=== PATIENT | female | born 1980 | race Caucasian/White ===

== ENCOUNTER 2019-04-03 16:00 | Inpatient (IN) | payer OTHER ==
[~2019-04-03] VITALS: Ht 157.5 cm; Wt 68.2 kg
[~2019-04-03 16:00] MED LIST: CALC-143 PO; PREN1TAB13 PO
[2019-04-03 16:55] VITALS: Ht 157.5 cm; Wt 68.2 kg
[2019-04-06 08:00] VITALS: BP 112/68; PULSE 68; RESP 16
== END 2019-04-06 17:18 | disposition home or self-care (01) | DRG 785 ==
LOC: OBT 16:00 → EDBD 16:00 → L-D 16:02 → OBT 17:48 → L-D 20:41 → PP1 04-04 00:33
PROVIDERS: ADMIT Obstetrics & Gynecology; ATTEND Obstetrics & Gynecology
PROC: 10D00Z1 Extraction of Products of Conception, Low, Open Approach (ICD-10-PCS; principal; 2019-04-03)
PROC: 0UB70ZZ Excision of Bilateral Fallopian Tubes, Open Approach (ICD-10-PCS; 2019-04-03)
DX: O34.211 Maternal care for low transverse scar from previous cesarean delivery (principal); Z3A.38 38 weeks gestation of pregnancy; Z37.0 Single live birth; Z30.2 Encounter for sterilization; Z23 Encounter for immunization
CPT/HCPCS: 85025; 85610; 85730; 86592; 86850; 86900; 86901; 87340; 88302; 90715; 99464; G0463; J0456; J0690; J1100; J1720; J1885; J2250; J2274; J2405; J2590; J3010; J7120